=== PATIENT | female | born 1960 | race Caucasian/White ===

== ENCOUNTER 2017-06-09 06:39 | Inpatient (IN) | payer OTHER ==
[~2017-06-09] VITALS: Ht 175.3 cm; Wt 63.4 kg
[~2017-06-09 06:39] MED LIST: ADVIL,NUPRIN,M200 MG PO; ADVIL200 MG PO; ASPIR-LOW81 MG PO; BUPROPION HCL150 M2 PO; BUSPIRONE HCL5 MG PO; CITALOPRAM HBR10 MG PO; DEPAKOTE ER250 MG PO; DIVALPROEX SOD250 M1 PO; DUREZOL 0.100 DROP/5 LEFT EYE; ENDOCET 5-3251 EACH PO; FIORICET,ESG1 TABLET PO; FLUOXETINE HCL20 MG PO; FLUOXETINE HCL40 MG PO; FOLIC ACID1 MG PO; FUROSEMIDE20 MG PO; FUROSEMIDE40 MG PO; GABAPENTIN300 MG PO; GRALISE300 MG PO; IBUPROFEN600 MG PO; IBUPROFEN800 MG PO; ILEVRO1.7 ML LEFT EYE; LIDOCAINE700 MG TD; LISINOPRIL2.5 MG PO; LOPRESSOR25 MG PO; MELOXICAM15 MG PO; METOPROLOL TART25 MG PO; MIRTAZAPINE30 MG PO; MOBIC15 MG PO; NABUMETONE750 MG PO; NICOTINE PATCH1 EAC2 TD; OMEPRAZOLE40 M1 PO; OXYCODONE-APAP1 EACH PO; PANTOPRAZOLE SO40 MG PO; PERCOCET 5/31 TABLET PO; PRAVASTATIN SOD40 MG PO; PROTONIX40 MG PO; THERAGRAN1 TABLET PO; TIZANIDINE HCL2 MG PO; TYLENOL EXTRA500 MG PO; VITAMIN D-32000 UNI2 PO; Z-SLEEP50 MG/30 M PO
[2017-06-09 07:36] LABS: BASOPHIL (%) 0.2 % (0-1); EOSINOPHIL (%) 0.1 % (0-5); HEMATOCRIT 29.4 % (36.0-46.0); HEMOGLOBIN 10.9 G/DL (11.9-15.5); IMMATURE GRANULOCYTE (%) 0.2 % (0.0-0.7); LYMPHOCYTE (%) 9.3 % (15-42); LYMPHOCYTE COUNT 0.8 K/uL (1.0-2.8); MCH 33.1 PG (29.0-34.0); MCHC 37.1 G/DL (30.0-36.0); MCV 89.4 FL (83-99); MONOCYTE (%) 8.5 % (3-12); MONOCYTE COUNT 0.8 K/uL (0-0.8); NEUTROPHIL (%) 81.7 % (45-76); NEUTROPHIL COUNT 7.2 K/uL (1.8-6.4); PLATELET COUNT 149 K/uL (156-360); RBC DIS.WIDTH-SD 45.5 % (39-53); RED BLOOD COUNT 3.29 M/uL (3.80-5.20); WHITE BLOOD COUNT 8.9 K/uL (4.1-10.2)
[2017-06-09 07:45] LABS: ALBUMIN 3.6 g/dL (3.2-4.8); CHLORIDE 83 mEq/L (99-109); POTASSIUM 4.1 mEq/L (3.7-5.4); SODIUM 120 mEq/L (136-147)
[2017-06-09 07:47] LABS: GLUCOSE 103 mg/dL (70-99)
[2017-06-09 07:48] LABS: TOTAL PROTEIN 6.6 g/dL (6.4-8.3)
[2017-06-09 07:49] LABS: TOTAL BILIRUBIN 0.7 mg/dL (0.0-1.0)
[2017-06-09 07:50] LABS: SERUM ETHYL ALCOHOL < 10 mg/dL
[2017-06-09 07:51] LABS: ALKALINE PHOSPHATASE 102 IU/L (3-129); CREATININE 0.6 mg/dL (0.6-1.3); GFR ESTIMATE (CALCULATED) > 59 mL/min/
[2017-06-09 07:52] LABS: UREA NITROGEN (BUN) 8 mg/dL (9-23)
[2017-06-09 07:53] LABS: AST (GOT) 41 IU/L (2-34)
[2017-06-09 07:54] LABS: ALT (GPT) 25 IU/L (3-49); CREATINE KINASE 349 IU/L (1-294); TOTAL CK 349 IU/L (1-294)
[2017-06-09 07:55] LABS: TROP-I INTERPRETATION NEGATIVE; TROPONIN-I < 0.01 ng/mL (0.0-0.30)
[2017-06-09 08:03] LABS: CK-MB 3.9 ng/mL (0.0-4.9); CKMB RELATIVE INDEX 1.1 (0.0-3.9)
[2017-06-09] MEDS ORDERED: BUTALB-APAP-CA1 EACH PO (09:19)
[2017-06-09] MEDS ORDERED: CYANOCOBALAM1000 MCG PO (09:20)
[2017-06-09] MEDS ORDERED: MELATONIN1 MG PO (09:20)
[2017-06-09] MEDS ORDERED: B COMPLEX #11 EACH PO (09:20)
[2017-06-09] MEDS ORDERED: METOPROLOL TART25 MG PO (09:21)
[2017-06-09] MEDS ORDERED: DIVALPROEX SOD250 MG PO (09:21)
[2017-06-09] MEDS ORDERED: BENTYL10 MG PO (09:22)
[2017-06-09] MEDS ORDERED: NALTREXONE HCL50 MG PO (09:22)
[2017-06-09] MEDS ORDERED: TIZANIDINE HCL2 MG PO ×2 (09:22)
[2017-06-09] MEDS ORDERED: PRAZOSIN HCL2 MG PO (09:22)
[2017-06-09] MEDS ORDERED: TRAMADOL HCL50 MG PO (09:23)
[2017-06-09 10:19] LABS: APPEARANCE CLEAR ((CLEAR)); BILIRUBIN NEGATIVE; BLOOD NEGATIVE; COLOR STRAW ((YELLOW)); GLUCOSE (STRIP) NEGATIVE; KETONES 5; LEUKOCYTES TRACE; NITRITE NEGATIVE; PROTEIN (STRIP) NEGATIVE; SPECIFIC GRAVITY 1.016 (1.000-1.030); UROBILINOGEN 0.2 MG/DL (0.2-1.0)
[2017-06-09 10:21] LABS: BACTERIA RARE /HPF; EPITHELIAL CELLS 1+ /HPF; MUCUS NONE SEEN /LPF; RED BLOOD CELLS 0-5 /HPF (0-5); UCUL ADDED? NO; WHITE BLOOD CELLS 0-5 /HPF (0-5)
[2017-06-09 14:41] LABS: TROP-I INTERPRETATION NEGATIVE; TROPONIN-I < 0.01 ng/mL (0.0-0.30)
[2017-06-09 17:30] VITALS: BP 154/74
[2017-06-09 20:00] VITALS: BP 168/75
[2017-06-09 20:05] LABS: TROP-I INTERPRETATION NEGATIVE; TROPONIN-I 0.01 ng/mL (0.0-0.30)
[2017-06-09 23:25] VITALS: BP 98/56
[2017-06-10 04:49] VITALS: BP 167/76
[2017-06-10 07:16] LABS: CHLORIDE 91 MEQ/L (99-109); CREATININE 0.4 MG/DL (0.6-1.3); GFR ESTIMATE (CALCULATED) > 59 mL/min/; GLUCOSE 89 mg/dL (70-99); POTASSIUM 3.3 MEQ/L (3.7-5.4); SODIUM 125 MEQ/L (136-147); UREA NITROGEN (BUN) 8 mg/dL (9-23)
[2017-06-10 07:39] VITALS: BP 160/73
[2017-06-10 08:12] LABS: PTT 26.5 SEC (25-37)
[2017-06-10 08:43] LABS: MAGNESIUM 1.4 mg/dl (1.3-2.7)
[2017-06-10 11:26] VITALS: BP 125/67
[2017-06-10 15:15] VITALS: BP 154/73
[2017-06-10 20:25] VITALS: BP 164/86
[2017-06-11] VITALS (7 sets, daily range): BP systolic 117–168; BP diastolic 58–98
[2017-06-11 08:25] LABS: HEMOGLOBIN 9.4 G/DL (11.9-15.5); MCH 33.1 PG (29.0-34.0); MCHC 34.8 G/DL (30.0-36.0); PLATELET COUNT 112 K/uL (156-360); RBC DIS.WIDTH-CV 15.2 % (11.8-14.6); RBC DIS.WIDTH-SD 51.6 % (39-53); RED BLOOD COUNT 2.84 M/uL (3.80-5.20); WHITE BLOOD COUNT 9.2 K/uL (4.1-10.2)
[2017-06-11 08:27] LABS: MCV 95.1 FL (83-99)
[2017-06-11 08:45] LABS: CHLORIDE 94 MEQ/L (99-109); CREATININE 0.4 MG/DL (0.6-1.3); GFR ESTIMATE (CALCULATED) > 59 mL/min/; GLUCOSE 88 mg/dL (70-99); MAGNESIUM 1.6 mg/dl (1.3-2.7); POTASSIUM 3.8 MEQ/L (3.7-5.4); SODIUM 126 MEQ/L (136-147); UREA NITROGEN (BUN) 4 mg/dL (9-23)
[2017-06-12 03:46] VITALS: BP 121/56
[2017-06-12 05:45] LABS: HEMATOCRIT 25.3 % (36.0-46.0); HEMOGLOBIN 8.9 G/DL (11.9-15.5); MCH 33.2 PG (29.0-34.0); MCHC 35.2 G/DL (30.0-36.0); MCV 94.4 FL (83-99); PLATELET COUNT 108 K/uL (156-360); RBC DIS.WIDTH-CV 15.6 % (11.8-14.6); RBC DIS.WIDTH-SD 52.5 % (39-53); RED BLOOD COUNT 2.68 M/uL (3.80-5.20); WHITE BLOOD COUNT 8.9 K/uL (4.1-10.2)
[2017-06-12 06:19] LABS: CHLORIDE 90 MEQ/L (99-109); CREATININE 0.4 MG/DL (0.6-1.3); GFR ESTIMATE (CALCULATED) > 59 mL/min/; GLUCOSE 87 mg/dL (70-99); POTASSIUM 3.5 MEQ/L (3.7-5.4); SODIUM 123 MEQ/L (136-147); UREA NITROGEN (BUN) 7 mg/dL (9-23)
[2017-06-12 07:45] VITALS: BP 118/58
[2017-06-12 10:45] VITALS: BP 128/52
[2017-06-12 12:35] LABS: BICARBONATE 27.3 mEq/L (22-26); CARBOXY HGB 1.9 % (0-5); COMMENTS - BLOOD GASES NAC+; METHEMOGLOBIN 1.7 % (0-1.5); O2 FLOW 8 L/MIN; PCO2 35 mm Hg (35-45); PO2 63 mm Hg (80-100); SITE LR
[2017-06-12 12:36] LABS: DEVICE HFNC
[2017-06-12 14:53] LABS: CHLORIDE 90 MEQ/L (99-109); CREATININE 0.4 MG/DL (0.6-1.3); GFR ESTIMATE (CALCULATED) > 59 mL/min/; GLUCOSE 99 mg/dL (70-99); POTASSIUM 4.2 MEQ/L (3.7-5.4); SODIUM 124 MEQ/L (136-147); UREA NITROGEN (BUN) 8 mg/dL (9-23)
[2017-06-12 20:30] LABS: CHLORIDE 89 MEQ/L (99-109); CREATININE 0.4 MG/DL (0.6-1.3); GFR ESTIMATE (CALCULATED) > 59 mL/min/; GLUCOSE 118 mg/dL (70-99); POTASSIUM 4.1 MEQ/L (3.7-5.4); SODIUM 123 MEQ/L (136-147); UREA NITROGEN (BUN) 8 mg/dL (9-23)
[2017-06-12 20:37] VITALS: BP 146/90
[2017-06-12 23:55] VITALS: BP 103/56
[2017-06-13] VITALS (7 sets, daily range): BP systolic 117–159; BP diastolic 63–71
[2017-06-13 00:55] LABS: SODIUM 127 mEq/L (136-147)
[2017-06-13 00:57] LABS: GLUCOSE 136 mg/dL (70-99)
[2017-06-13 01:01] LABS: CREATININE 0.5 mg/dL (0.6-1.3); GFR ESTIMATE (CALCULATED) > 59 mL/min/
[2017-06-13 01:02] LABS: UREA NITROGEN (BUN) 8 mg/dL (9-23)
[2017-06-13 01:05] LABS: CHLORIDE 92 mEq/L (99-109)
[2017-06-13 06:14] LABS: URIC ACID 2.5 mg/dL (3.1-9.2)
[2017-06-13 06:18] LABS: CHLORIDE 91 MEQ/L (99-109); CREATININE 0.4 MG/DL (0.6-1.3); GFR ESTIMATE (CALCULATED) > 59 mL/min/; GLUCOSE 128 mg/dL (70-99); SODIUM 127 MEQ/L (136-147); UREA NITROGEN (BUN) 11 mg/dL (9-23)
[2017-06-13 07:26] LABS: THYROTROPIN (TSH) 0.81 MIU/L (0.4-5.5)
[2017-06-13 13:47] LABS: CHLORIDE 90 MEQ/L (99-109); CREATININE 0.5 MG/DL (0.6-1.3); GFR ESTIMATE (CALCULATED) > 59 mL/min/; GLUCOSE 171 mg/dL (70-99); POTASSIUM 4.4 MEQ/L (3.7-5.4); SODIUM 124 MEQ/L (136-147); UREA NITROGEN (BUN) 13 mg/dL (9-23)
[2017-06-14 04:58] VITALS: BP 135/60
[2017-06-14 07:44] VITALS: BP 141/65
[2017-06-14 10:26] LABS: HEPATITIS C ANTIBODY Nonreactive
[2017-06-14 12:19] VITALS: BP 132/69
[2017-06-14 15:30] VITALS: BP 123/61
[2017-06-14 23:54] VITALS: BP 144/70
[2017-06-15 04:30] VITALS: BP 139/64
[2017-06-15 08:31] VITALS: BP 153/66
[2017-06-15 11:39] LABS: CHLORIDE 95 MEQ/L (99-109); CREATININE 0.4 MG/DL (0.6-1.3); GFR ESTIMATE (CALCULATED) > 59 mL/min/; GLUCOSE 99 mg/dL (70-99); POTASSIUM 3.4 MEQ/L (3.7-5.4); SODIUM 131 MEQ/L (136-147); UREA NITROGEN (BUN) 10 mg/dL (9-23)
[2017-06-15 12:12] VITALS: BP 126/69
[2017-06-15 15:54] VITALS: BP 162/81
[2017-06-15 20:28] VITALS: BP 148/67
[2017-06-15 23:35] VITALS: BP 145/65
[2017-06-16 03:45] VITALS: BP 148/65
[2017-06-16 06:03] LABS: CHLORIDE 97 MEQ/L (99-109); CREATININE 0.5 MG/DL (0.6-1.3); GFR ESTIMATE (CALCULATED) > 59 mL/min/; GLUCOSE 73 mg/dL (70-99); POTASSIUM 3.4 MEQ/L (3.7-5.4); SODIUM 131 MEQ/L (136-147); UREA NITROGEN (BUN) 9 mg/dL (9-23)
[2017-06-16 08:39] VITALS: BP 130/65
[2017-06-16 10:48] LABS: HEMATOCRIT 25.2 % (36.0-46.0); HEMOGLOBIN 8.7 G/DL (11.9-15.5); MCH 32.2 PG (29.0-34.0); MCHC 34.5 G/DL (30.0-36.0); MCV 93.3 FL (83-99); RBC DIS.WIDTH-CV 15.6 % (11.8-14.6); RBC DIS.WIDTH-SD 53.2 % (39-53); WHITE BLOOD COUNT 7.4 K/uL (4.1-10.2)
[2017-06-16 10:57] LABS: PLATELET COUNT 355 K/uL (156-360)
[2017-06-16 12:20] VITALS: BP 129/65
[2017-06-16 16:44] VITALS: BP 129/66
[2017-06-16 20:11] VITALS: BP 149/72
[2017-06-17 00:11] VITALS: BP 155/71
[2017-06-17 02:40] VITALS: BP 141/73
[2017-06-17 05:22] LABS: BASOPHIL (%) 0 % (0-1); EOSINOPHIL (%) 0.4 % (0-5); HEMATOCRIT 23.6 % (36.0-46.0); IMMATURE GRANULOCYTE (%) 0.6 % (0.0-0.7); LYMPHOCYTE (%) 22.4 % (15-42); LYMPHOCYTE COUNT 1.6 K/uL (1.0-2.8); MCH 31.7 PG (29.0-34.0); MCHC 33.9 G/DL (30.0-36.0); MCV 93.7 FL (83-99); MONOCYTE (%) 14.3 % (3-12); NEUTROPHIL (%) 62.3 % (45-76); NEUTROPHIL COUNT 4.5 K/uL (1.8-6.4); PLATELET COUNT 381 K/uL (156-360); RBC DIS.WIDTH-CV 15.5 % (11.8-14.6); RBC DIS.WIDTH-SD 53.1 % (39-53); RED BLOOD COUNT 2.52 M/uL (3.80-5.20); WHITE BLOOD COUNT 7.3 K/uL (4.1-10.2)
[2017-06-17 05:46] LABS: CHLORIDE 97 MEQ/L (99-109); CREATININE 0.4 MG/DL (0.6-1.3); GFR ESTIMATE (CALCULATED) > 59 mL/min/; GLUCOSE 83 mg/dL (70-99); POTASSIUM 3.6 MEQ/L (3.7-5.4); SODIUM 132 MEQ/L (136-147); UREA NITROGEN (BUN) 11 mg/dL (9-23)
[2017-06-17 07:45] VITALS: BP 134/79
[2017-06-17 16:19] VITALS: BP 137/75
[2017-06-17 17:07] LABS: C DIFF TOXIN NEGATIVE (NEGATIVE)
[2017-06-17 19:49] VITALS: BP 155/67
[2017-06-18] VITALS (8 sets, daily range): BP systolic 132–193; BP diastolic 64–79
[2017-06-18 08:55] LABS: HEMATOCRIT 27.6 % (36.0-46.0); HEMOGLOBIN 9.2 G/DL (11.9-15.5); MCH 31.7 PG (29.0-34.0); MCHC 33.3 G/DL (30.0-36.0); MCV 95.2 FL (83-99); PLATELET COUNT 474 K/uL (156-360); RBC DIS.WIDTH-CV 15.9 % (11.8-14.6); RBC DIS.WIDTH-SD 55.5 % (39-53); WHITE BLOOD COUNT 9.4 K/uL (4.1-10.2)
[2017-06-18 09:40] LABS: CHLORIDE 94 MEQ/L (99-109); CREATININE 0.4 MG/DL (0.6-1.3); GFR ESTIMATE (CALCULATED) > 59 mL/min/; GLUCOSE 96 mg/dL (70-99); POTASSIUM 3.9 MEQ/L (3.7-5.4); SODIUM 130 MEQ/L (136-147); UREA NITROGEN (BUN) 8 mg/dL (9-23)
[2017-06-19 05:59] LABS: BASOPHIL (%) 0.1 % (0-1); EOSINOPHIL (%) 0.5 % (0-5); HEMATOCRIT 24.2 % (36.0-46.0); HEMOGLOBIN 8.1 G/DL (11.9-15.5); IMMATURE GRANULOCYTE (%) 1.1 % (0.0-0.7); LYMPHOCYTE COUNT 2.5 K/uL (1.0-2.8); MCH 31.5 PG (29.0-34.0); MCHC 33.5 G/DL (30.0-36.0); MCV 94.2 FL (83-99); MONOCYTE (%) 11.9 % (3-12); NEUTROPHIL (%) 55.4 % (45-76); NEUTROPHIL COUNT 4.5 K/uL (1.8-6.4); PLATELET COUNT 490 K/uL (156-360); RBC DIS.WIDTH-CV 15.9 % (11.8-14.6); RBC DIS.WIDTH-SD 54.9 % (39-53); RED BLOOD COUNT 2.57 M/uL (3.80-5.20); WHITE BLOOD COUNT 8.1 K/uL (4.1-10.2)
[2017-06-19 06:30] LABS: CHLORIDE 98 MEQ/L (99-109); CREATININE 0.5 MG/DL (0.6-1.3); GFR ESTIMATE (CALCULATED) > 59 mL/min/; GLUCOSE 76 mg/dL (70-99); POTASSIUM 3.7 MEQ/L (3.7-5.4); SODIUM 133 MEQ/L (136-147); UREA NITROGEN (BUN) 9 mg/dL (9-23)
[2017-06-19 07:43] VITALS: BP 141/72
[2017-06-19 15:57] VITALS: BP 138/73
[2017-06-20 00:21] VITALS: BP 148/67
[2017-06-20 07:09] LABS: BASOPHIL (%) 0.2 % (0-1); EOSINOPHIL (%) 0.6 % (0-5); EOSINOPHIL COUNT 0.1 K/uL (0-0.3); HEMATOCRIT 25.6 % (36.0-46.0); HEMOGLOBIN 8.5 G/DL (11.9-15.5); LYMPHOCYTE (%) 29.2 % (15-42); LYMPHOCYTE COUNT 2.6 K/uL (1.0-2.8); MCH 31.3 PG (29.0-34.0); MCHC 33.2 G/DL (30.0-36.0); MCV 94.1 FL (83-99); MONOCYTE (%) 11.4 % (3-12); NEUTROPHIL (%) 57.6 % (45-76); NEUTROPHIL COUNT 5.2 K/uL (1.8-6.4); PLATELET COUNT 523 K/uL (156-360); RBC DIS.WIDTH-SD 55.1 % (39-53); RED BLOOD COUNT 2.72 M/uL (3.80-5.20)
[2017-06-20 07:38] LABS: CHLORIDE 97 MEQ/L (99-109); CREATININE 0.4 MG/DL (0.6-1.3); GFR ESTIMATE (CALCULATED) > 59 mL/min/; GLUCOSE 81 mg/dL (70-99); POTASSIUM 3.6 MEQ/L (3.7-5.4); SODIUM 131 MEQ/L (136-147); UREA NITROGEN (BUN) 9 mg/dL (9-23)
[2017-06-20 07:45] VITALS: BP 146/68
[2017-06-20 16:18] VITALS: BP 164/75
[2017-06-20 23:59] VITALS: BP 148/65
[2017-06-21 07:52] VITALS: BP 165/79
[2017-06-21 16:31] VITALS: BP 137/68
[2017-06-21 20:50] VITALS: BP 174/78
[2017-06-21 23:15] VITALS: BP 136/63
[2017-06-22 04:53] LABS: HEMATOCRIT 25.9 % (36.0-46.0); HEMOGLOBIN 8.9 G/DL (11.9-15.5); MCH 32.1 PG (29.0-34.0); MCHC 34.4 G/DL (30.0-36.0); MCV 93.5 FL (83-99); PLATELET COUNT 502 K/uL (156-360); RBC DIS.WIDTH-CV 15.8 % (11.8-14.6); RBC DIS.WIDTH-SD 54.4 % (39-53); RED BLOOD COUNT 2.77 M/uL (3.80-5.20); WHITE BLOOD COUNT 7.9 K/uL (4.1-10.2)
[2017-06-22 05:00] LABS: ALBUMIN 2.8 g/dL (3.2-4.8)
[2017-06-22 05:01] LABS: CHLORIDE 99 mEq/L (99-109); POTASSIUM 3.6 mEq/L (3.7-5.4); SODIUM 133 mEq/L (136-147)
[2017-06-22 05:03] LABS: GLUCOSE 68 mg/dL (70-99)
[2017-06-22 05:06] LABS: CREATININE 0.5 mg/dL (0.6-1.3); GFR ESTIMATE (CALCULATED) > 59 mL/min/; PHOSPHORUS 3.5 mg/dL (2.5-4.9)
[2017-06-22 05:07] LABS: UREA NITROGEN (BUN) 4 mg/dL (9-23)
[2017-06-22 08:55] VITALS: BP 171/74
[2017-06-22 13:27] VITALS: BP 142/70
[2017-06-22 20:00] VITALS: BP 120/74
[2017-06-22 23:10] VITALS: BP 116/68
[2017-06-23 04:00] VITALS: BP 132/85
[2017-06-23 08:10] VITALS: BP 136/63
[2017-06-23] MEDS ORDERED: SPIRIVA RESPIMAT4 GM IH (10:31)
[2017-06-23] MEDS ORDERED: SODIUM CHLORIDE1 G1 PO (10:32)
[2017-06-23] MEDS ORDERED: ADVAIR HFA120 INHALA IH (10:34)
[2017-06-23] MEDS ORDERED: FLORASTOR250 MG PO (10:34)
[2017-06-23] MEDS ORDERED: OMEPRAZOLE40 M1 PO (14:51)
== END 2017-06-23 15:09 | disposition home health service (06) | DRG 183 ==
LOC: EME → EDBD 06:39 → EME 06:39 → 3EAST 09:10 → EDOF 09:10 → ENRESERV 09:16 → 3EAST 16:23
PROVIDERS: Hospitalist; Internal Medicine; Internal Medicine Gastroenterology; Internal Medicine Nephrology; Physician Assistant; Radiology Diagnostic Radiology
DX: S22.42XA Multiple fractures of ribs, left side, initial encounter for closed fracture (principal); W18.30XA Fall on same level, unspecified, initial encounter; Y92.009 Unspecified place in unspecified non-institutional (private) residence as the place of occurrence of the external cause; J96.01 Acute respiratory failure with hypoxia; J18.9 Pneumonia, unspecified organism; J44.0 Chronic obstructive pulmonary disease with (acute) lower respiratory infection; J44.1 Chronic obstructive pulmonary disease with (acute) exacerbation; E22.2 Syndrome of inappropriate secretion of antidiuretic hormone; M62.82 Rhabdomyolysis; S01.111A Laceration without foreign body of right eyelid and periocular area, initial encounter; S05.12XA Contusion of eyeball and orbital tissues, left eye, initial encounter; S20.222A Contusion of left back wall of thorax, initial encounter; E87.6 Hypokalemia; I11.0 Hypertensive heart disease with heart failure; I50.32 Chronic diastolic (congestive) heart failure; R19.7 Diarrhea, unspecified; K64.8 Other hemorrhoids; E11.9 Type 2 diabetes mellitus without complications; D69.6 Thrombocytopenia, unspecified; I27.20 Pulmonary hypertension, unspecified; D64.9 Anemia, unspecified; R91.1 Solitary pulmonary nodule; I25.10 Atherosclerotic heart disease of native coronary artery without angina pectoris; G89.4 Chronic pain syndrome; G40.909 Epilepsy, unspecified, not intractable, without status epilepticus; M79.7 Fibromyalgia; R29.6 Repeated falls; F31.9 Bipolar disorder, unspecified; F17.210 Nicotine dependence, cigarettes, uncomplicated; F10.20 Alcohol dependence, uncomplicated; Z91.19 Patient's noncompliance with other medical treatment and regimen; Z87.19 Personal history of other diseases of the digestive system; Z79.899 Other long term (current) drug therapy; Z91.81 History of falling; Z91.5 Personal history of self-harm; Z71.6 Tobacco abuse counseling; M54.9 Dorsalgia, unspecified
CPT/HCPCS: 36600; 70450; 70486; 71045; 71250; 71260; 74018; 77012; 80048; 80048 91; 80053; 80069; 81003; 82533 91; 82550; 82553; 82803; 82948; 83630; 83735; 83880; 83930; 83935; 84295; 84300; 84443; 84484; 84550; 85025; 85027; 85610; 85730; 86803; 87070; 87205; 87449; 87493; 88305; 93005; 93306; 94010; 94640; 94640 76; 94760; 94799; 97530 GO; 97530 GP; 99202; 99281; 99285; G0480; J0360; J0696; J1650; J1940; J2250; J2270; J2405; J2543; J2930; J3010; J3475; J3480; J7030; J7040; J7050; J7512; S0030

== ENCOUNTER → 2017-10-14 | Outpatient (CLI) | payer OTHER ==
[~2017-10-14] MED LIST changes: +ADVAIR HFA120 INHALA IH; +B COMPLEX #11 EACH PO; +BENTYL10 MG PO; +BUTALB-APAP-CA1 EACH PO; +CYANOCOBALAM1000 MCG PO; +DIVALPROEX SOD250 MG PO; +FLORASTOR250 MG PO; +MELATONIN1 MG PO; +NALTREXONE HCL50 MG PO; +PRAZOSIN HCL2 MG PO; +SODIUM CHLORIDE1 G1 PO; +SPIRIVA RESPIMAT4 GM IH; +TRAMADOL HCL50 MG PO
[2017-10-14 08:13] LABS: HEMATOCRIT 34.4 % (36.0-46.0); HEMOGLOBIN 11.2 G/DL (11.9-15.5); MCH 27.9 PG (29.0-34.0); MCHC 32.6 G/DL (30.0-36.0); MCV 85.6 FL (83-99); PLATELET COUNT 305 K/uL (156-360); RBC DIS.WIDTH-CV 19.9 % (11.8-14.6); RBC DIS.WIDTH-SD 61.7 % (39-53); RED BLOOD COUNT 4.02 M/uL (3.80-5.20); WHITE BLOOD COUNT 9.7 K/uL (4.1-10.2)
[2017-10-14 08:22] LABS: PTT 30.8 SEC (25-37)
== END | disposition home or self-care (01) ==
LOC: OPR 07:04 → EDSTATUS 08:00 → OPR 08:00
PROVIDERS: Internal Medicine Pulmonary Disease
DX: C34.11 Malignant neoplasm of upper lobe, right bronchus or lung (principal); M79.7 Fibromyalgia; L93.0 Discoid lupus erythematosus; M06.9 Rheumatoid arthritis, unspecified; J44.9 Chronic obstructive pulmonary disease, unspecified; F17.200 Nicotine dependence, unspecified, uncomplicated
CPT/HCPCS: 71045; 77012; 85027; 85610; 85730; 88305; 88341 TC; 88342 TC; J3010